=== PATIENT | male | born 1945 | race Caucasian/White ===

== ENCOUNTER → 2017-03-08 | Outpatient (CLI) | payer OTHER | LOC: BHFA 14:00 | PROVIDERS: ATTEND Internal Medicine | DX: I25.10 Atherosclerotic heart disease of native coronary artery without angina pectoris (principal) ==

== ENCOUNTER → 2017-03-09 | Outpatient (CLI) | payer OTHER | LOC: BHFA 13:00 | PROVIDERS: ATTEND Internal Medicine Cardiovascular Disease | DX: I25.10 Atherosclerotic heart disease of native coronary artery without angina pectoris (principal) | CPT/HCPCS: 78452; 93017; A9500; J2785 ==

== ENCOUNTER 2017-08-26 22:24 | Inpatient (IN) | payer OTHER ==
[2017-08-26] MEDS ORDERED: ASPIRIN 81 MG CHEWABLE TAB PO ONE (22:33)
[2017-08-26] MEDS ORDERED: NS 500 ML IV ONE (22:33)
--- NOTE | 2017-08-26 22:33 | EDPHY ---
H & P Stated Complaint: L sided arm pain took nitro HPI/ROS: HPI CHIEF COMPLAINT: Left arm pain, chest pain HISTORY OF PRESENT ILLNESS: Patient very pleasant 71-year-old male, history of hypertension hyperlipidemia coronary artery disease with 2 stents, he presents emergency room with a discomfort in his left arm that then went into his left chest. He denies any shortness of breath with this. Denies radiation of pain. Does not go to his back or his abdomen her neck. He took a nitroglycerin which did improve his discomfort. Current pain 09/22. Patient states this pain started at rest was sitting and watching TV. 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 Past Surgical History: Cardiac catheterization Social History: Smokes tobacco daily. Denies illicit drugs or alcohol. Family History: Noncontributory ROS REVIEW OF SYSTEMS: A comprehensive 10 point review of systems is otherwise negative aside from elements mentioned in the history of present illness. Exam Constitutional appears well nontoxic triage nursing summary reviewed, vital signs reviewed, awake/alert. Eyes normal conjunctivae and sclera, EOMI, PERRLA. HENT normal inspection, atraumatic, moist mucus membranes, no epistaxis, neck supple/ no meningismus, no raccoon eyes. Respiratory clear to auscultation bilaterally, normal breath sounds, no respiratory distress, no wheezing. Cardiovascular rate normal, regular rhythm, no murmur, no edema, distal pulses normal. Gastrointestinal soft, non-tender, no rebound, no guarding, normal bowel sounds, no distension, no pulsatile mass. Genitourinary no CVA tenderness. Musculoskeletal no midline vertebral tenderness, full range of motion, no calf swelling, no tenderness of extremities, no meningismus, good pulses, neurovascularly intact. Skin pink, warm, & dry, no rash, skin atraumatic. Neurologic awake, alert and oriented x 3, AAOx3, moves all 4 extremities equally, motor intact, sensory intact, CN II-XII intact, normal cerebellar, normal vision, normal speech. Psychiatric normal mood/affect. Heme/Lymph/Immune no lymphadenopathy. Differential diagnosis includes but is not limited to: ACS, atypical chest pain , pneumothorax, pneumonia, pulmonary embolism, aortic dissection, congestive heart failure, tumor, musculoskeletal pain, esophageal pain, GERD, peptic ulcer disease, pancreatitis Medical Decision Making: Plan for this patient IV establishment full engine monitor obtain EKG to rule out acute coronary syndrome, check cardiac markers troponin, check blood work, chest x-ray and re-evaluate. Re-evaluation: EKG interpretation by me on record in [employer] system. Impression time of EKG 2234, this is sinus rhythm rate of 84 left anterior fascicular block present. Poor R-wave progression. No ST elevation. No significant ST depression. No significant T-wave abnormalities. 0: Patient is now chest pain-free after 2nd dose of nitroglycerin. Patient additionally received full-dose aspirin.. EKG is been reviewed and is similar to previous EKGs. I do not appreciate new acute ischemia today. Troponin is noted to be negative. D-dimer negative. Chest x-ray is unremarkable. Patient is the following cardiovascular risk factors which includes cardiac disease with underlying stents, age, hypertension, hyperlipidemia I do recommend to the patient and his at bedside that they stay overnight in the hospital for cardiac evaluation. Given his risk factors. I think it is appropriate to do multiple serial enzymes and possibly a stress test. Patient updated. They are okay with being admitted. Source: Patient - Personal History Current Tetanus/Diphtheria Vaccine: Unsure Current Tetanus Diphtheria and Acellular Pertussis (TDAP): Unsure Tetanus Vaccine Date: <10yrs - Medical/Surgical History Hx Asthma: No Hx Chronic Respiratory Disease: No Hx Diabetes: No Hx Cardiac Disease: Yes Hx Renal Disease: No Hx Cirrhosis: No Hx Alcoholism: No Hx HIV/AIDS: No Hx Splenectomy or Spleen Trauma: No Other PMH: [id number], cardiac stents/lead poisioning, soboxon pt. - Social History Smoking Status: Heavy smoker Constitutional: Initial Vital Signs Temperature (C) 36.8 C 08/26/17 22:25 Heart Rate 88 08/26/17 22:25 Respiratory Rate 18 08/26/17 22:25 Blood Pressure 120/75 08/26/17 22:25 O2 Sat (%) 97 08/26/17 22:25 O2 Delivery Mode Room Air Allergies/Adverse Reactions: midazolam HCl [From Versed] Allergy (Unknown, Verified 04/16/14 08:53) fentanyl Allergy (Verified 08/26/17 23:32) HAYFEVER Allergy (Intermediate, Uncoded 04/16/14 08:53) SINUSITIS MITES Allergy (Intermediate, Uncoded 04/16/14 08:53) SINUSITIS OPIATES Allergy (Unknown, Uncoded 08/27/17 13:53) Other-Enter Comments morphine Allergy (Uncoded 08/27/17 16:18) Home Medications: Medication Instructions Recorded Clopidogrel Bisulfate [Plavix (RX)] 75 mg PO DAILY 02/19/12 Aspirin [Aspirin 81mg (*)] 81 mg PO DAILY 04/07/14 Buprenorphine HCl/Naloxone HCl 2.67 mg SL TID 08/27/17 [Suboxone 8 mg-2 mg Sl Film] Diazepam [Valium 10 MG (*)] 10 mg PO HS PRN 08/27/17 Herbals/Supplements -Info Only 1 ea PO DAILY 08/27/17 Naproxen Sodium [Naprelan] 500 mg PO TID PRN 08/27/17 Nature-Throid 195mg 1 each PO DAILY 08/27/17 Silodosin [Rapaflo] 8 mg PO DAILY 08/27/17 Medical Decision Making - Data Points Laboratory Results: Laboratory Results 08/26/17 22:35 08/26/17 22:35 Medications Given: Aspirin Buffered (Aspirin Ec) 325 mg PO ONCALL ONE Stop: 08/28/17 06:01 Last Admin: 08/27/17 11:21 Dose: 325 mg Diphenhydramine HCl (Benadryl) 25 mg PO ONCALL ONE Stop: 08/28/17 06:01 Last Admin: 08/27/17 11:25 Dose: 25 mg Enoxaparin Sodium (Lovenox) 40 mg SC DAILY [facility] Stop: 02/23/18 08:59 Last Admin: 08/27/17 10:00 Dose: 40 mg Famotidine (Pepcid) 20 mg PO ONCALL ONE Stop: 08/28/17 06:01 Last Admin: 08/27/17 11:23 Dose: 20 mg Miscellaneous Medication (Buprenorphine Hcl/Naloxone Hcl [Suboxone 8 Mg-2 Mg Sl Film]) 2.67 mg SL TID [facility] Stop: 02/23/18 21:59 Last Admin: 08/27/17 22:04 Dose: 2.67 mg Discontinued Medications Aspirin (Aspirin) 324 mg PO EDNOW ONE Stop: 08/26/17 22:34 Last Admin: 08/26/17 22:44 Dose: 324 mg Buprenorphine HCl (Suboxone 8mg/2mg) 1.5 tab SL ONCE ONE Stop: 08/27/17 16:50 Last Admin: 08/27/17 17:20 Dose: 0.5 tab Clopidogrel Bisulfate (Plavix) 600 mg PO ONCE ONE Stop: 08/27/17 13:26 Last Admin: 08/27/17 16:16 Dose: Not Given Sodium Chloride (Ns) 500 mls @ 1,000 mls/hr IV EDNOW ONE PRN Reason: Protocol Stop: 08/26/17 23:02 Last Admin: 08/26/17 22:43 Dose: 500 mls Sodium Chloride (Ns) 1,000 mls @ 200 mls/hr IV ONCALL ONE Stop: 08/27/17 10:59 Last Admin: 08/27/17 11:24 Dose: 1,000 mls Nitroglycerin (Nitrostat) 0.4 mg SL EDNOW ONE Stop: 08/26/17 22:39 Last Admin: 08/26/17 22:44 Dose: 0.4 mg Departure - Departure Disposition: [facility] Acute Clinical Impression: Chest pain Condition: Fair
[2017-08-26] MEDS ORDERED: NITROGLYCERIN 0.4 MG BTL SL ONE (22:38)
--- NOTE | 2017-08-26 22:42 | CPEKG ---
Heart Rate: 84 RR Interval: 714 P-R Interval: 156 QRSD Interval: 82 QT Interval: 352 QTC Interval: 417 P [place]: 86 QRS [place]: -46 T Wave [place]: 74 EKG Severity - ABNORMAL ECG - EKG Impression: SINUS RHYTHM EKG Impression: LAD, CONSIDER LEFT ANTERIOR FASCICULAR BLOCK EKG Impression: BORDERLINE R WAVE PROGRESSION, ANTERIOR LEADS Electronically Signed By: Renato Rosas 27-Aug-2017 07:30:00
[2017-08-26 22:53] LABS: INR 0.9 (0.83-1.16); PROTIME(PATIENT) 12.4 SEC (12.0-15.0)
[2017-08-26 22:58] LABS: PLATELET COUNT 172 10^3/uL (150-400)
[2017-08-26 23:06] LABS: CREATINE KINASE 45 IU/L (0-224)
[2017-08-26] MEDS ORDERED: ACETAMINOPHEN 325 MG TAB PO PRN (23:29)
[2017-08-26] MEDS ORDERED: ONDANSETRON 4 MG/2 ML VIAL IVP PRN (23:29)
[2017-08-26] MEDS ORDERED: NITROGLYCERIN 0.4 MG BTL SL PRN (23:33)
--- NOTE | 2017-08-27 04:40 | GHP ---
[f rep st] HISTORY AND PHYSICAL DATE OF ADMISSION: 08/27/2017 PRIMARY ENTERTAINMENT DIRECTOR: Dr. Meade. SOURCE: Patient is overall a fair to poor historian, initially did minimize any medical issues, but falls asleep during the interview. His electronic medical record was reviewed. Case discussed with ED provider. CHIEF COMPLAINT: Chest pain. HISTORY OF PRESENT ILLNESS: Very pleasant, 71-year-old gentleman with past medical history significa nt for coronary artery disease with history of stent placement in the LAD and multi-vessel coronary d isease, nonocclusive disease, who presents to the emergency department today with complaints of new o nset of left arm pain with radiation to his left chest. Patient reports that he was sitting, watchin g a movie on TV approximately 9 p.m., when he had onset of his chest pain. Patient reports that he h ad associated headache. No nausea, vomiting, diaphoresis, or shortness of breath. Patient did feel some heaviness in his chest. He took a dose of nitroglycerin which he had at home, but he was not alva re if this was . His chest pain did subside, but returned approximately 40 minutes later. Abdiel joya did take a 2nd dose of nitroglycerin with resolution of his pain. [facility] to [facility], patient anticipated going to the emergency department for further evaluation, and e n route reports that he took additional 2 doses with resolution of his chest pain upon arrival to the ER. Patient denies any PND, orthopnea, and some mild lower extremity edema in his feet and ankles. REVIEW OF SYSTEMS: GENERAL: Patient denies any acute weight loss. He reports a history of being qu ite thin, but stable in weight, currently at 56 kg, and he reports no acute changes in weight for the last 5 years. The patient reported some occasional sweats, but no fevers or chills. SKIN: No rash es or sores. ENT: Patient without any complaints of nasal congestion, sore throat. EYES: Patient denies any acute changes in vision or ocular pain. Does were glasses. CV: See HPI. RESPIRATORY: No cough or shortness of breath. GI: No nausea, vomiting, abdominal pain, diarrhea. : No dysuri a or hematuria. MUSCULOSKELETAL: Patient denies any joint pain or muscle weakness. NEURO: Headach e initially with onset of chest pain, now resolved. Patient denies any numbness or tingling. PSYCHI ATRIC: Patient denies any anxiety, depression. Remainder of review of systems negative, except as n oted above. ALLERGIES: Versed, fentanyl, opiates, and patient reports history of hay fever. HOME MEDICATIONS: Including Plavix, aspirin, Suboxone, and Rapaflo. PAST MEDICAL HISTORY: Significant for coronary artery disease with history of stent placement in the LAD, multivessel disease without restenosis, benign essential hypertension, hyperlipidemia, BPH, ANGIE for which patient reports he underwent sleep study, but declines to use CPAP or oxygen. PAST SURGICAL HISTORY: Significant for cardiac cath with stent placement in 2011 and repeat cardiac cath in the last several years, per the patient, that did not require intervention, wisdom tooth extr action. FAMILY HISTORY: Patient reports history of CAD in father, mother with diabetes type 2, maternal gran dmother with diabetes type 2 and history of CVA, a brother and sister with history of drug a nd alcohol dependence. He has 2 adult children who are healthy. SOCIAL HISTORY: Patient is retired. He does continue to smoke 2-3 cigarettes per day for the past 6 0 years without intention of cessation. He does not drink any alcohol or utilize any illicit drugs. He has a previous history of drug and possibly alcohol abuse, but patient declined to further elucid ate. CODE STATUS: Full, but patient does not want prolonged life support. PHYSICAL EXAMINATION: VITAL SIGNS: Blood pressure upon arrival to the emergency department is 120/7 5, heart rate 88, respiratory rate 18, O2 sat is 97% on room air with a temperature of 36.8. Repeat vital signs: Blood pressure 108/64, heart rate 60, respiratory rate 13, O2 sat 96% on room air. GEN ERAL: No acute distress. Elderly, frail, cachectic-appearing gentleman is asleep in bed. When I wa lk up to bedside, patient is snoring with apneic events, but he does not arouse from sleep, until his name is called. HEAD: Normocephalic, atraumatic. EYES: Extraocular muscles are grossly intact. Pupils are equal, round, and symmetric. No scleral icterus or conjunctival injection. ENT: Mucous membranes appear moist. Patient with dentures in place. No oropharyngeal erythema or exudates. NEC K: Supple. Trachea midline. CV: Bradycardic with regular rhythm. No murmurs, rubs, or gallops ap preciated. RESPIRATORY: Lungs are clear to auscultation bilaterally. No wheezes, rales, or rhonchi . Unlabored breathing. ABDOMEN: Positive bowel sounds. Soft, nontender to palpation. No rebound, guarding, or masses appreciated. : No Gates in place. No suprapubic tenderness to palpation. E XTREMITIES: Patient is able to move extremities while lying in bed. Strength testing deferred danya pedraza to patient's complaint of feeling tired. NEURO: Grossly nonfocal. No facial drooping. Patien t is awake, alert, and oriented x3. Detailed exam is limited secondary to patient's desire to go to sleep. PSYCHIATRIC: Affect is quite flat. Patient does fall asleep intermittently and does not danial ear quite interested in conversing, but does cooperate as much as possible. LABORATORY FINDINGS: WBC 5.43, H and H 15.5 and 46.2, MCV of 94.7, platelet count is 172, no bands, eosinophil percent is 9.8. PT is 12.4, INR 0.9, PTT is 28.4. Sodium is 143, potassium is 4.7, chloride is 108, CO2 is 24, anion gap is 11, BUN 18, creatinine 0.8, GFR of greater than 60, glucose 91, calcium is 9.5, magnesium 1.7, total bili 0.2, ALT is 24, AST is 20, alk phos is 89. CK is 45, CK-MB is 1.38. Troponin is negative at 0.019. BTNP is 67. Total pr otein 6.3, albumin is 3.9. Lipase is 35. Chest x-ray: Image report reviewed myself showing a calcified granuloma in left lower lung and left hilum that is unchanged, otherwise negative. EKG, reviewed myself, showed normal sinus rhythm without any acute ST elevations. QTc is 417. ASSESSMENT AND PLAN: This is a 71-year-old gentleman with a history of coronary artery disease, stat us post stent placement in left anterior descending artery 9 years ago, who presents with complaints of chest pain and left arm pain. 1. Chest pain. Differential diagnosis including angina, less likely acute coronary syndrome versus less likely pulmonary embolism or musculoskeletal. Patient reports a recent evaluation with Dr. Matt lizarraga on outpatient basis, and completed stress testing 2 months ago which he reports was normal. Donato lagos's chest pain is currently resolved. He did receive 4 doses prior to arrival in the emergency depa rtment of nitroglycerin. We will leave this p.r.n. We will trend serial enzymes, repeat EKG in the morning, and further discussion with cardiology service for further recommendations, given patient's significant coronary disease. 2. Hyperlipidemia. Patient reports he is no longer on statin therapy, and is diet controlled. 3. Coronary artery disease. Continue aspirin, Plavix. Patient is not on statin, angiotensin-conver ting enzyme inhibitors, angiotensin receptor frankie, or beta frankie. 4. Obstructive sleep apnea with noncompliance. Patient declines any supplemental oxygen overnight. He has witnessed apneic events, and encourage patient to reconsider therapeutic options and to follo w up with his primary care physician. 5. Underweight with a BMI of 17.4. Patient reports his weight has actually stabilized for the last several years. He denies any acute weight changes. Patient should follow up with primary care physi david. 6. Benign prostatic hypertrophy. Resume Rapaflo. 7. Tobacco abuse. Cessation encouraged. Holding off on nicotine supplementation, pending further c ardiac evaluation. 8. History of drug abuse and chronically on Suboxone therapy. Patient to resume at discharge. 9. Fluid, electrolyte, nutrition. Patient will be made n.p.o. after midnight. Electrolytes will be monitored and replaced if needed. 10. Prophylaxis: Sequential compression devices and Lovenox. 11. Code status is full. Patient does not want any prolonged life support. DISPOSITION: Patient will be admitted to observation on PCU floor. Currently, held in ov erflow and PCU status. Pending further cardiac evaluation and serial enzyme trends. /[id number]/MODL
[2017-08-27] MEDS ORDERED: NS 1,000 ML IV ONE (06:00)
--- NOTE | 2017-08-27 08:52 | CPEKG ---
Heart Rate: 49 RR Interval: 1224 P-R Interval: 140 QRSD Interval: 86 QT Interval: 408 QTC Interval: 369 P [place]: 50 QRS [place]: -52 T Wave [place]: 73 EKG Severity - ABNORMAL ECG - EKG Impression: SINUS BRADYCARDIA EKG Impression: LAD, CONSIDER LEFT ANTERIOR FASCICULAR BLOCK EKG Impression: LOW VOLTAGE THROUGHOUT Electronically Signed By: Rodolfo Fu 29-Aug-2017 09:18:21
[2017-08-27] MEDS: ENOXAPARIN 40 MG/0.4 ML SYR SC SCH (10:00)
[2017-08-27] MEDS ORDERED: NITROGLYCERIN 0.4 MG BTL SL PRN (10:22)
[2017-08-27] MEDS ORDERED: TEMAZEPAM 15 MG CAP PO PRN (10:22)
[2017-08-27] MEDS ORDERED: ACETAMINOPHEN 325 MG TAB PO PRN (10:22)
[2017-08-27] MEDS ORDERED: diphenhydrAMINE 25 MG CAP PO ONE (11:04)
[2017-08-27] MEDS ORDERED: ASPIRIN EC 325 MG TAB PO ONE (11:05)
[2017-08-27] MEDS ORDERED: FAMOTIDINE 20 MG TAB ONE (11:05)
--- NOTE | 2017-08-27 11:11 | GCON ---
[f rep st] CONSULTATION CHIEF COMPLAINT: Chest pain. HISTORY OF PRESENT ILLNESS: Jaciel Sarah is a gentleman who has known coronary artery disease. Las t night he was at home and he developed some anterior chest discomfort. He felt tight, felt like his heart issues and he also had some pain a little bit in his left arm. It came and went. He, at 9 o' clock, took a nitroglycerin and it helped. At 10:30 he had more problems with chest pain. He came i nto the hospital. He had been noticing fatigue on Sunday and Sunday, and he is concerned about his heart. He has a long history of smoking. He is not smoking at this time. He does not have nausea, vomiting , diarrhea, fever, chills, cough. No pleuritic chest pain. No hot, swollen joints. No peripheral e patricia. No trauma to the head, neck, or chest. He has been working 6-7 days a week as he always does. He is able to keep up his work and not have problems with that. He has been taking his medications at home. He has no history of rheumatic disease, claudication or cerebrovascular disease. He has k nown coronary artery disease. He has a family history of premature coronary disease. SOCIAL HISTORY: History of smoking. He has had a history of issues with drugs. PAST MEDICAL HISTORY: History of dyslipidemia, history of known myocardial infarctions. He is a smo ker. He does not have diabetes. Cardiac history is repeated in-stent in the assessment and plan. REVIEW OF SYSTEMS: 10-point review of systems negative, except as noted above. MEDICATIONS: At home: Naprelan, herbal medicines, Valium, Rapaflo, Plavix, aspirin, and Suboxone. ALLERGIES: Are Versed, fentanyl, hay fever, opiates. FAMILY HISTORY: He has multiple people in the family who had early coronary artery disease. PHYSICAL EXAMINATION: VITAL SIGNS: Blood pressure is 119/60, respiratory rate is 12. HEENT: Pupil s equal and reactive. NECK: Supple. CARDIOVASCULAR: S1, S2. Soft systolic murmur left sternal roque rder. No diastolic murmur. No S3 or S4. No rubs. PULMONARY: Rhonchi. No rales, wheezing or dull ness. He has stigmata of COPD with increased AP diameter and prolonged expiration. ABDOMEN: Soft, nontender, without masses. CVA: No tenderness. EXTREMITIES: No edema, inflammation or ulceration. NEUROLOGIC: Cranial nerves 2-12 grossly normal. Motor and sensory intact. IMAGING: His EKG shows no acute changes. He has left axis deviation and low voltage. Chest x-ray s hows findings consistent with COPD and a calcified granuloma in the left lower lung. Hyperinflation. He had an echocardiographic study done several months ago in the office, which showed inferior hypo kinesis and an ejection fraction 45% to 50%. He came in with an acute myocardial infarction with 100 % mid LAD stenosis in 2009. He had a repeat catheterization later that showed his stents were patent during that same hospitalization. He had further discomfort, and on 02/21 he had another ju ogram which showed 20% stenosis prior to the proximal stent in the LAD, 20% in-stent restenoses in th e mid LAD stent, 20% circumflex disease. The right coronary artery is 70% and nondominant. The LAD gives off a right atrial branch. LABORATORY DATA: Troponins have been negative. White count 5.3, hematocrit 46.2, platelets 172. ASSESSMENT: 1. Coronary artery disease. 2. Ischemic cardiomyopathy. 3. Smoking. 4. Dyslipidemia. 5. Chest pain. PLAN: At this point in time. His pulses are full and equal. There is nothing to suggest aortic dis ease right now. His EKG shows low voltage and that may be due to his pulmonary disease, but will als o do an echocardiographic study and make sure there is nothing going on in terms of pericardial effus ion. This pain that he had yesterday sounds more like ischemic pain. It was improved with nitroglyc kaylynn, and it feels like his ischemic pain in the past. He wants to undergo an angiogram. He knows t he risks and the options, so we will proceed with coronary angiography. He is a major problem, he co ntinues to smoke, but it is very difficult for him to get off of that. He has had problems with drug s in the past and he is on Suboxone. We will figure out what drugs we can use to sedate him during t he angiogram, and I will be in touch with Anesthesia for that information. Otherwise, all his questions have been answered. We will be watching very carefully for his lipids o peter time. Now that he is in the hospital, he may be willing to undergo some further medications. We can get him on Coreg and MICHAEL inhibitor for his ischemic cardiomyopathy. I have talked to his and him at length. We will follow very closely. I texted the hospitalist who asked for this consultation about our plans. /[id number]/MODL
[2017-08-27] MEDS ORDERED: LIDOCAINE 1% 300 MG/30 ML SDV ONE (11:25)
[2017-08-27] MEDS ORDERED: MIDAZOLAM 2 MG/2 ML VIAL ONE (11:26)
[2017-08-27] MEDS ORDERED: fentaNYL 100 MCG/2 ML INJ ONE (11:26)
[2017-08-27] MEDS ORDERED: IOPAMIDOL (ISOVUE-370) 150 ML BTL IV ONE ×2 (11:26→12:47)
[2017-08-27] MEDS ORDERED: DIAZEPAM 10 MG TAB PO PRN (12:28)
[2017-08-27] MEDS ORDERED: BIVALIRUDIN 250 MG/5 ML VIAL IV ONE (12:40)
[2017-08-27] MEDS ORDERED: NITROGLYCERIN 1,500 MCG/15 ML VIAL MISC ONE (12:40)
[2017-08-27] MEDS ORDERED: CLOPIDOGREL BISULFATE 75 MG TAB ONE (13:17)
[2017-08-27] MEDS ORDERED: ATROPINE SULFATE 1 MG/10 ML SYR IVP PRN (13:25)
[2017-08-27] MEDS ORDERED: CLOPIDOGREL BISULFATE 75 MG TAB PO ONE (13:25)
--- NOTE | 2017-08-27 13:34 | POSTANESTH ---
Post Anesthetic Evaluation Cardiovascular Status: Normal, Stable Respiratory Status: Normal, Stable Level of Consciousness/Mental Status: Mildly Sleepy, Arousable Pain Control: Adequate, Prn Tx Ordered Nausea/Vomiting Control: Adequate, Prn Tx Ordered Complications Possibly Related to Anesthesia: None Noted
--- NOTE | 2017-08-27 13:34 | PDANEPAE ---
ANE History of Present Illness 71 year old with chest pain ANE Past Medical History - Cardiovascular History Hx Chest Pain: Yes - Pulmonary History Hx Oxygen in Use at Home: No - Endocrine History Hx Diabetes: No ANE Review of Systems Review of systems is: negative Review of Systems: ANE Patient History - Allergies Allergies/Adverse Reactions: midazolam HCl [From Versed] Allergy (Unknown, Verified 04/16/14 08:53) fentanyl Allergy (Verified 08/26/17 23:32) HAYFEVER Allergy (Intermediate, Uncoded 04/16/14 08:53) SINUSITIS MITES Allergy (Intermediate, Uncoded 04/16/14 08:53) SINUSITIS OPIATES Allergy (Unknown, Uncoded 04/16/14 08:53) - Home Medications Home medications: home medication list seen and reviewed (Pt has a history of narcotic abuse and is on sulbaxone) Home Medications: BUPRENORPHINE/NALOXONE 8mg/2mg [Suboxone] 1.5 tab SL DAILY 02/19/12 [Last Taken Unknown] Clopidogrel Bisulfate [Plavix (RX)] 75 mg PO DAILY 02/19/12 [Last Taken Unknown] Aspirin [Aspirin 81mg (*)] 81 mg PO DAILY 04/07/14 [Last Taken Unknown] Diazepam [Valium 10 MG (*)] 10 mg PO HS PRN 08/27/17 [Last Taken Unknown] Herbals/Supplements -Info Only 1 ea PO DAILY 08/27/17 [Last Taken Unknown] Naproxen Sodium [Naprelan] 500 mg PO TID PRN 08/27/17 [Last Taken Unknown] Nature-Throid 195mg 1 each PO DAILY 08/27/17 [Last Taken Unknown] Silodosin [Rapaflo] 8 mg PO DAILY 08/27/17 [Last Taken Unknown] - Smoking Hx Smoking Status: Heavy smoker ANE Labs/Vital Signs - Labs Result Diagrams: 08/26/17 22:35 08/26/17 22:35 - Vital Signs Blood Pressure: 119/61 Heart Rate: 58 Respiratory Rate: 13 O2 Sat (%): 94 Height: 180.34 cm Weight: 56.79 kg ANE Physical Exam - Airway Mallampati Score: Class 1 Mouth exam: dentures - Pulmonary Pulmonary: no respiratory distress - Cardiovascular Cardiovascular: regular rate and rhythym - ASA Status ASA Status: III ANE Anesthesia Plan Anesthesia Plan: MAC
--- NOTE | 2017-08-27 13:44 | CPEKG ---
Heart Rate: 61 RR Interval: 984 P-R Interval: 124 QRSD Interval: 86 QT Interval: 416 QTC Interval: 419 P [place]: 75 QRS [place]: -56 T Wave [place]: 70 EKG Severity - ABNORMAL ECG - EKG Impression: SINUS RHYTHM EKG Impression: LEFT ANTERIOR FASCICULAR BLOCK EKG Impression: LOW VOLTAGE THROUGHOUT Electronically Signed By: Rodolfo Fu 29-Aug-2017 09:17:06
--- NOTE | 2017-08-27 13:50 | ECHO ---
[email or web address] [address] Main: [phone] Fax: Transthoracic Echocardiogram Name: NONA COKER MR#: [id number] Study Date: 08/27/2017 Study Time: 11:47 AM Date of : 1945 Age: 71 year(s) Height: 180.3 cm (71 in.) Weight: 56.7 kg (125 lb.) BSA: 1.73 m2 Gender: Male Examination: Echo Indication: COPD, Shortness of breath, CP, Pre Cath Image Quality: Contrast: Requested by: Jean Meade BP: 115 mmHg/67 mmHg Heart Rate: Rhythm: Normal sinus rhythm Indication: COPD, Shortness of breath, CP, Pre Cath Procedure Staff Directional Bore Operator: Chad Knowles Physician: Requesting Provider: Measurements: Chambers Valvular Assessment AV/MV Valvular Assessment TV/PV Normal Normal Normal Name Value Range Name Value Range Name Value Range Ao Giuliana (MM): 3.3 cm (2.2 cm-3.7 AV Vmax: 1.02 m/s (1 m/s-1.7 TR Vmax: 2.66 mm/s ( - ) cm) m/s) TR PGmax: 28 mmHg ( - ) IVSd (2D): 0.7 cm (0.6 cm-1.1 AV maxP mmHg ( - ) syst. PAP: 33 mmHg ( - ) cm) LVOT Vmax: 0.46 m/s (0.7 m/s-1.1 PV Vmax: 0.69 m/s (0.6 m/s-0.9 LVDd (2D): 4.6 cm (4.2 cm-5.9 m/s) m/s) cm) MV E Vmax: 0.46 m/s ( - ) PV PGmax: 2 mmHg ( - ) LVDs (2D): 3.5 cm (2.1 cm-4 MV A Vmax: 0.53 m/s ( - ) cm) MV E/A: 0.87 ( - ) LVPWd (2D): 1.0 cm (0.6 cm-1 cm) LVEF (MM): 48 (>=55 %) Visual EF: 50 % Continued Measurements: Chambers Valvular Assessment TV/PV Name Value Name Value LADs Lon.6 cm CVP (est.): 5 mmHg LA Area: 18.1 cm2 Findings: Left Ventricle: Normal size left ventricle. Low normal left ventricular systolic function. The ejection fraction is visually estimated to be 50 %. Diastolic dysfunction is present. . There is subtle mid to distal anteroseptal hypokinesis.. Patient: NONA COKER Study Date: 08/27/2017 Page 1 of 2 11:47 AM Right Ventricle: Normal size right ventricle. Left Atrium: The left atrium is normal in size. Right Atrium: The right atrium is normal in size. Mitral Valve: The mitral valve is normal in appearance. Aortic Valve: The aortic valve is tri-leaflet and functions normally. Tricuspid Valve: The tricuspid valve is normal in appearance and function. Aorta: The aorta is normal. Pericardium: No pericardial effusion. (No Signature Object) Patient: NONA COKER Study Date: 08/27/2017 Page 2 of 2 11:47 AM [id number]
--- NOTE | 2017-08-27 16:35 | ASMTCMCOM ---
CM Note CM Note Notes: 71 year old male admitted for CP. He has a hx of CAD with a stent to LAD, multivessel dis, HTN, HLD, BPH, ANGIE-no c-pap. He also has a hx of drug use and continues to smoke. Patient to go to the woven label designer today. Not anticipating discharge needs at this time. Date Signed: 08/27/2017 04:34 PM Electronically Signed By:Key Cruz LCSW
--- NOTE | 2017-08-27 18:40 | HOSPPROG ---
Hospitalist Progress Note Assessment/Plan: Assessment: 71-year-old presents with unstable angina in the setting of known coronary artery disease Plan: 1. Unstable angina. Evidenced by anginal chest pain at rest, secondary to a 99 % lesion in the LAD on cardiac catheterization, amenable to PCI with stent placement this afternoon -patient will be maintained on aspirin and Plavix -LDL 129, goal 70, counseled the patient and his that attempting to utilize a different statin then his previous intolerant one may be of benefit, will need to check with Dr. Meade which statin the patient has taken in the past -patient's heart rate and blood pressure currently precludes use of beta-frankie -given high risk lesion, monitor for arrhythmias additional 24 hr on telemetry -counseled the patient and his regarding the use of sublingual nitroglycerin in future if he experiences any recurrent chest pain, they live far from medical care so this will be important 2. Chronic systolic congestive heart failure and ischemic cardiomyopathy. Ejection fraction 50% on echocardiogram, currently no evidence of acute exacerbation, patient will need to monitor his volume status 3. Chronic pain with continuous opiate dependency. Patient is very specific about his dosing of Suboxone, will attempt to accommodate Diet. Regular Prophylaxis. High risk patient, Lovenox 40 Code. Full Disposition. Anticipated discharge uncertain, anticipated length stay is greater than 48 hr warranting inpatient admission status reasonable medical necessity including acute unstable angina requiring PCI, high risk lesion requiring ongoing telemetry monitoring. Upgraded to inpatient admission status now. Prolonged service, in addition to the time originally spent on history and physical by Dr. Zavala, direct patient care, at bedside with patient and , from 4:25 p.m. until 5:00 p.m. (35 minutes), addressing issues outlined above. Subjective: Patient denies any chest pain, he would like his Suboxone Objective: Vital Signs Temp Pulse Resp BP Pulse Ox 36.8 C 56 L 12 106/68 95 08/27/17 17:08 08/27/17 18:12 08/27/17 18:12 08/27/17 18:12 08/27/17 18:12 Laboratory Results 08/27/17 02:55 08/26/17 08/27/17 08/28/17 05:59 05:59 05:59 Intake Total 525 100 Output Total 900 400 Balance -375 -300 PT 12.4 SEC (12.0-15.0) 08/26/17 22:35 INR 0.90 (0.83-1.16) 08/26/17 22:35 - Physical Exam Constitutional: no apparent distress, appears nourished, not in pain Cardiovascular: regular rate and rhythym, no murmur, rub, or gallop, No edema Respiratory: no respiratory distress, no rales or rhonchi, clear to auscultation Gastrointestinal: normoactive bowel sounds, soft, non-tender abdomen, no palpable masses Skin: other (No erythema, no induration, no ecchymoses, no hematoma or tenderness at the cath site) Psychiatric: flat affect, other (Somnolent) ICD10 Worksheet Patient Problems: Problems Problem Status Onset Chest pain Acute
--- NOTE | 2017-08-27 19:33 | CPIP ---
[f rep st] INVASIVE CARDIAC PROCEDURE DATE OF PROCEDURE: 08/27/2017 INDICATIONS FOR PROCEDURE: Chest pain. PROCEDURES: 1. Nonselective right groin sheathogram. 2. Left ventriculogram. 3. Right coronary artery angiography. 4. Left coronary artery angiography with percutaneous coronary intervention of proximal left anterio r descending utilizing Synergy 3.0 x 16 mm drug-eluting stent. HISTORY: Briefly, this is a 71-year-old male with history of coronary artery disease. The patient u nderwent a coronary cardiac catheterization by Dr. Kevin Meade. Please refer to Dr. Meade for full delineation of underlying coronary anatomy. Briefly, the patient was found to have a high-grade pro x LAD stenosis of over 90% just at the level of his previously placed stents. There was some involve ment of the previously placed stents as well. Given these findings, patient consented for PCI. DESCRIPTION OF PROCEDURE: Utilizing the same short 6-Bruneian sheath in the right groin which was veri fied angiographically, a JR4 catheter was advanced to the right coronary artery. Images of the right coronary artery revealed a nondominant right coronary artery with a high-grade 70% stenosis at the p roximal aspect. This catheter was then removed and an EBU 3.5 guide catheter was advanced to the lef t coronary artery. A Choice PT wire was placed down to the mid LAD. Re-demonstration of the high-gr moisés 90% lesion in the proximal LAD was demonstrated. The patient was started on Angiomax bolus and d rip. Utilizing a 3.0 x 12 Compliant balloon, the balloon was placed in the proximal lesion and infla miguelangel to 10 atmospheres. After deflation, angiography showed improved patency of this area with no ab dence of dissection or perforation. We decided proceed with stenting of the vessel with a Synergy 3. 0 x 16 mm drug-eluting stent. This was deployed successfully at 14 atmospheres. After deployment, a ngiography showed excellent patency of the stented area with no evidence of dissection or perforation . There was a mild step-up from the ostial LAD to the stented area but no evidence of any edge disse ction. This was verified in orthogonal views. Wire was removed. The guide catheter was then pulled back. The pigtail catheter was then advanced into the left ventricle, EDP was 15 mmHg. Left ventri culogram obtained in the GODINEZ projection showed EF of 55% with no wall motion abnormalities. There wa s no pull-back gradient between LV and the aorta. The pigtail catheter was then pulled back, and und er digital subtraction imaging, abdominal angiogram was obtained which showed patent distal ascending aorta. There was what appeared to be a 50% right common iliac narrowing followed by an additional a mallory of 60% to 70% narrowing in the right external iliac artery. The right internal iliac artery appe ared to be patent. The left common iliac artery appeared to be patent; however, there was linear are as of possible dissection noted in the left distal common iliac artery. The left internal iliac river ry appeared to be patent. The left external iliac artery appeared to be patent. 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 The pigtail catheter was removed over an 0.035 wire. The rig ht groin was sutured in place. Patient tolerated the procedure well with no complications. IMPRESSION: 1. Successful percutaneous coronary intervention of high-grade proximal left anterior descending wit h Synergy 3.0 x 16 mm drug-eluting stent. 2. Nondominant right coronary artery with significant disease. 3. Normal ejection fraction. 4. Significant aortic iliac peripheral arterial disease. PLAN: The patient will have his sheath discontinued 2 hours after the Angiomax is turned off. We wi ll administer 600 Plavix now. When the patient is more awake, if the patient should to be complainin g of claudication, especially in his right lower extremity, we can certainly plan on proceeding with intervention of his vascular territory in the near future. /[id number]/MODL
[2017-08-28 04:31] LABS: PLATELET COUNT 152 10^3/uL (150-400)
[2017-08-28 04:46] LABS: INR 0.98 (0.83-1.16); PROTIME(PATIENT) 13.2 SEC (12.0-15.0)
[2017-08-28] MEDS ORDERED: ASPIRIN EC 325 MG TAB PO ONE (06:00)
[2017-08-28] MEDS ORDERED: FAMOTIDINE 20 MG TAB PO ONE (06:00)
[2017-08-28] MEDS ORDERED: DIAZEPAM 5 MG TAB PO ONE (06:00)
[2017-08-28] MEDS ORDERED: diphenhydrAMINE 25 MG CAP PO ONE (06:00)
--- NOTE | 2017-08-28 08:56 | CPEKG ---
Heart Rate: 58 RR Interval: 1034 P-R Interval: 164 QRSD Interval: 86 QT Interval: 404 QTC Interval: 397 P [place]: 90 QRS [place]: 63 T Wave [place]: 78 EKG Severity - NORMAL ECG - EKG Impression: SINUS RHYTHM Electronically Signed By: Arcenio Ruiz 02-Sep-2017 10:18:47
[2017-08-28] MEDS ORDERED: Herbals/Supplements -Info Only PO SCH (09:00)
[2017-08-28] MEDS: CLOPIDOGREL BISULFATE 75 MG TAB PO SCH (09:11)
[2017-08-28] MEDS: ENOXAPARIN 40 MG/0.4 ML SYR SC SCH (09:11)
[2017-08-28] MEDS: EZETIMIBE 10 MG TAB PO SCH (10:34)
[2017-08-28] MEDS: ASPIRIN 81 MG CHEWABLE TAB PO SCH (10:34)
--- NOTE | 2017-08-28 11:01 | SOAPPROG ---
[facility] Progress Note Assessment/Plan: Assessment: 1. Coronary artery disease 2. Dyslipidemia 3. Tobacco abuse 4. COPD He is doing well today. He received a stent to his left anterior descending artery yesterday. Tolerated that well with no cx . At we are going to start him on bisoprolol at this point and see if he can tolerate that I am not sure that that will work as he has a low blood pressure and low heart rate so were going to have to see if he can tolerate this at all. I would really like to put him with on vasotec 2.5 mg daily as well but we will not add that today. He is not going to be going to work for 1 week and when he goes back to work in 1 week after discharge he will only work for hours a day for that week. He he is not going to smoke anymore and wants no medical aids to help him stop smoking. We have cover this extensively. For his lipids we will try is him I would try zetia at 10 mg per day and watch how he does with that. He has had multiple statins in the past and always had very bad reactions to those and he does not want to start those at this time. I spent a good deal of time talking to he and his all her questions have been answered. Plan: 08/28/17 10:58 Subjective: He is feeling well. Is a little bit lightheaded He has no nausea vomiting No chest pain or chest tightness No trouble with his right groin. He is not dizzy. He does not like statins and would rather not take a statin at this point time. He has been on Plavix and will continue his Plavix. Will continue his aspirin. Objective: Vital Signs Temp Pulse Resp BP Pulse Ox 36.6 C 66 12 91/53 L 92 08/28/17 07:11 08/28/17 07:11 08/28/17 07:11 08/28/17 07:11 08/28/17 07:11 Laboratory Results 08/28/17 03:44 08/28/17 03:44 08/27/17 08/28/17 08/29/17 05:59 05:59 05:59 Intake Total 525 300 Output Total 900 650 Balance -375 -350 PT 13.2 SEC (12.0-15.0) 08/28/17 03:44 INR 0.98 (0.83-1.16) 08/28/17 03:44 Physical Exam - Physical Exam General Appearance: alert Neck: supple Respiratory: rhonchi, prolonged expiration Cardiac/Chest: systolic murmur, No irregularly irregular Abdomen: normal bowel sounds, non-tender, soft, No organomegaly Skin: warm/dry, No pallor Neuro/Psych: no motor/sensory deficits, alert, normal mood/affect ICD10 Worksheet Patient Problems: Problems Problem Status Onset Chest pain Acute
--- NOTE | 2017-08-28 11:12 | PDMN ---
Medical Necessity Medical necessity: Change to IP, as of 08/27/17, per MD; los >2 mn for ongoing management of acute unstable angina requiring PCI w/stent placement, high risk lesion requiring ongoing telemetry monitoring; hx CHF & ischemic cardiomyopathy ; per progress note & order 08/27/17
--- NOTE | 2017-08-28 11:26 | CPIP ---
[f rep st] INVASIVE CARDIAC PROCEDURE PROCEDURE: Left coronary angiogram. INDICATIONS: The patient has been having rest angina. His troponins are negative. He has been admi tted to the hospital, and he is now getting a coronary angiogram. He has known coronary artery disease with 100% occlusion of his left anterior descending artery in [place] of [place], that was stented with multiple stents. He subsequently had a followup angiogram very louie rtly after the first stents were put in to see if the stents were patent and they were. Then in 2011 , he had a followup angiogram, and he was having more pain and he had 20% to 25% disease with in-sten t restenosis, but nothing high grade that needed to be fixed at that time. Since that time, he has been followed clinically. He has remained on Plavix and aspirin, and he has refused to take statin medications. FINDINGS: LEFT CORONARY ANGIOGRAM: The left main coronary artery is normal. The LAD has 95% in-stent mid restenosis. The distal LAD is excellent. There is intimal disease in the distal vessel. The circumflex coronary artery OM1 has 2 5% proximal stenosis. The circumflex coronary artery is a dominant vessel and there is intimal disea se present. The posterolateral branch comes off the circumflex and has good blood flow with no high- grade obstruction present. The right coronary artery is nondominant and has a 70% proximal to mid section stenosis that is old a nd not changed from 2012 significantly. Left ventriculogram was deferred at this time. CONCLUSION: 1. Significant coronary artery disease involving the left anterior descending artery. 2. The recommendation is for PCI with Dr. Angel. 3. It was a little difficult passing the catheter up into the patient's abdominal aorta, although th ere were no complications from passing it up and we used a Ches[place] J-wire to get to the aorta. [facility] is going to have an abdominal aortogram and iliac study done by Dr. Angel at the end of his in tervention. All questions have been answered. COMPLICATIONS: None. The patient understands and wishes to proceed with intervention. /[id number]/MODL
[2017-08-28] MEDS ORDERED: BISOPROLOL FUMARATE 5 MG TAB PO ONE (14:07)
[2017-08-28] MEDS: ASCORBIC ACID 500 MG TAB PO SCH (15:03)
--- NOTE | 2017-08-28 15:03 | HOSPPROG ---
Hospitalist Progress Note Assessment/Plan: Assessment: 71-year-old presents with unstable angina in the setting of known coronary artery disease Plan: 1. Unstable angina. 99% lesion in the LAD on cardiac catheterization, amenable to PCI with stent placement -patient will be maintained on aspirin and Plavix -LDL 129-155, goal 70, counseled the patient extensively regarding indication for statin, he chooses to use zetia + supplement, although I encouraged him to consider trial of statin w/ outpt CPK surveillance, since his primary concern is rhabdomyolysis -d/w Dr. Meade, he recommends trial of low dose bblocker to reduce risk of subsequent CV morbidity, requires monitored trial as inpt since his ely shoshone HR 50 -60s and sBP 100s, at risk for complication from bblocker -monitor on tele 2. Chronic systolic congestive heart failure and ischemic cardiomyopathy. Ejection fraction 50% on echocardiogram, currently no evidence of acute exacerbation, patient will need to monitor his volume status -adding bblocker 3. Chronic pain with continuous opiate dependency. Appropriate dosing of suboxone 4. BPH. Chronic, uses rapaflo split tid to avoid orthostasis, monitor - check AM orthostatics Diet. Regular Prophylaxis. High risk patient, Lovenox 40 Code. Full Disposition. Anticipated discharge 08/29, pending stability of above. Subjective: patient concerned about myopathy from statins, orthostasis from bblockers Objective: Vital Signs Temp Pulse Resp BP Pulse Ox 36.6 C 92 16 96/53 L 91 L 08/28/17 11:27 08/28/17 11:27 08/28/17 11:27 08/28/17 11:27 08/28/17 11:27 Laboratory Results 08/28/17 03:44 08/28/17 03:44 08/27/17 08/28/17 08/29/17 05:59 05:59 05:59 Intake Total 300 Output Total 250 Balance 50 PT 13.2 SEC (12.0-15.0) 08/28/17 03:44 INR 0.98 (0.83-1.16) 08/28/17 03:44 - Time Spent With Patient Time Spent with Patient: greater than 35 minutes Time Spent with Patient: Greater than 35 minutes spent on this patients care, greater than 50% of time spent counseling, educating, and coordinating care regarding the above mentioned plan. - Pending Discharge Pending Discharge Within 24 Hours: Yes Pending Discharge Date: 08/29/17 Pending Discharge Time: 11:00 - Physical Exam Constitutional: no apparent distress, appears nourished, not in pain Cardiovascular: bradycardia, No systolic murmur, No irregularly irregular Respiratory: no respiratory distress, no rales or rhonchi, clear to auscultation Psychiatric: interacting appropriately, not anxious, not encephalopathic, thought process linear ICD10 Worksheet Patient Problems: Problems Problem Status Onset Chest pain Acute
[2017-08-28 19:38] VITALS: RESP 16
[2017-08-29 04:04] VITALS: O2SAT 91
[2017-08-29 07:38] VITALS: TEMP 97.5
[2017-08-29] MEDS: EZETIMIBE 10 MG TAB PO SCH (08:46)
[2017-08-29] MEDS: CLOPIDOGREL BISULFATE 75 MG TAB PO SCH (08:46)
[2017-08-29] MEDS: ASCORBIC ACID 500 MG TAB PO SCH (08:46)
[2017-08-29] MEDS: ASPIRIN 81 MG CHEWABLE TAB PO SCH (08:46)
[2017-08-29] MEDS: ENOXAPARIN 40 MG/0.4 ML SYR SC SCH (08:46)
[2017-08-29] MEDS ORDERED: THYROID PO SCH ×2 (09:00)
[2017-08-29] MEDS ORDERED: BISOPROLOL FUMARATE 5 MG TAB PO SCH (09:00)
[2017-08-29 09:25] VITALS: BP 93/59; PULSE 60
--- NOTE | 2017-08-29 13:23 | PDDCSUM ---
Discharge Summary Discharge Summary: DISCHARGE SUMMARY FOLLOW-UP ITEMS: Repeat outpatient LDL DATE OF ADMISSION: 08/26/2017 DATE OF DISCHARGE: 08/29/2017 DISCHARGE DIAGNOSES: 1. Acute unstable angina 2. Chronic systolic congestive heart failure and ischemic cardiomyopathy 3. Chronic pain with continuous opiate dependency 4. Chronic BPH CONSULTATIONS: Cardiology PROCEDURES / IMAGING: Cardiac catheterization demonstrating 99% lesion in the LAD, status post PCI with stent placement CHIEF COMPLAINT: Acute chest pain, fatigue, shortness of breath SUBJECTIVE: Patient is feeling well at time of discharge, he did have some lightheadedness upon standing earlier this morning PHYSICAL EXAM ON DISCHARGE: Systolic blood pressure is 80-100, heart rate 60-70, alert awake oriented x3, distant heart sounds, regular rate and rhythm, no murmurs rubs or gallops, symptomatically orthostatic LABS ON DISCHARGE: LDL 155 HOSPITAL COURSE BY PROBLEM: The patient presented with acute unstable angina resulting in fatigue, exertional shortness of breath, chest discomfort, and this was secondary to a 99 % lesion in the LAD, noted on cardiac catheterization, amenable to PCI with stent placement. The patient will be maintained on his dual anti-platelet therapy with aspirin and Plavix, and we spent a considerable amount of time working with the patient regarding cholesterol management counseling, ultimately deciding to utilize Zetia 10 mg in addition to the patient's herbal supplements. The patient will have repeat outpatient lipid panel monitoring through Dr. Meade office. We also attempted to introduce a beta-frankie to reduce his overall risk of cardiovascular morbidity, and the patient did not tolerate low-dose bisoprolol. He did not tolerate from a blood pressure standpoint, becoming significantly orthostatic in the setting of his concomitant use of Rapaflo. Despite splitting up his dosage of Rapaflo and utilizing it in 1/3 doses over the course of the day, the bisoprolol still made him orthostatic and is best this time to not place him at further risk of falls with the beta-frankie. Dr. Meade also counseled the patient regarding smoking cessation, and the patient will follow up with Dr. Meade next week. The patient's ejection fraction is 50% on echocardiogram, and he did not demonstrate any acute exacerbation of his chronic systolic CHF. The patient does have underlying chronic pain with continuous opiate dependency and was continued on his appropriate dosing of Suboxone. DISCHARGE MEDICATIONS: Please see official discharge medication reconciliation sheet in chart , continue home medications with the addition of Zetia 10 mg daily, as needed sublingual nitroglycerin. DISCHARGE INSTRUCTIONS: Please follow up with Dr. Meade within 1 week, please engage in slow transfers on the day of discharge, as the bisoprolol most likely be in your system for an additional 12 hr. TIME SPENT: Greater than 30 minutes were spent on direct patient care, as well as discharge planning and preparation.
--- NOTE | 2017-08-29 15:56 | ASDISCHSUM ---
Discharge Information Plan Status:Home with No Needs Medically Cleared to Leave:08/28/2017 Discharge Date:08/29/2017 11:36 AM CM D/C Disposition: ADT D/C Disposition:Home, Routine, Self-Care Projected Discharge Date:08/29/2017 12:00 AM Transportation at D/C: Discharge Delay Reason: Follow-Up Date:08/29/2017 12:00 AM Discharge Slot: Final Diagnosis:CP Placement Information Patient Contact Information Contact Name:DARLEEN Relationship: Address:[address] Work Phone: [facility] Phone: [facility]/Zip Code:[place] [address] Email: Financial Information Financial Class: Primary Plan Desc:MEDICARE INPATIENT Primary Plan Number:[id number] Secondary Plan Desc: Secondary Plan Number:[id number] Assessment Information [facility] CM Progress Note CM Note CM Note Notes: 71 year old male admitted for CP. He has a hx of CAD with a stent to LAD, multivessel dis, HTN, HLD, BPH, ANGIE-no c-pap. He also has a hx of drug use and continues to smoke. 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 Not anticipating discharge needs at this time. Date Signed: 08/27/2017 04:34 PM Electronically Signed By:Key Cruz LCSW Intervention Information Intervention Type:GRICELDA-Signed Date of Service:08/28/2017 10:12 AM Patient Type:Observation Staff Member:Saloni Mays Hours: Discipline: Severity: Comment:
--- NOTE | 2017-08-29 16:40 | SOAPPROG ---
SOAP Progress Note Assessment/Plan: Assessment: 1. Coronary artery disease 2. Dyslipidemia 3. Tobacco abuse 4. COPD Plan: 08/28/17 10:58 08/29/17 16:41 1 coronary artery disease 2 dyslipidemia 3 tobacco abuse 4 COPD There is no new issues today. We spent half an hour talking about prevention and exercise and not smoking. I talked to he and his in all her questions have been answered. He is not going to take a beta-frankie because of his symptoms and low blood pressure and low heart rate on the beta-frankie. He will not go home on Vasotec. At like to get him on Vasotec bike and he is very wary of having his blood pressure be too low. Is not going to work for 1 week and after that weak he is going to work for over 4 hours a day only. All his questions have been answered and he is ready to go home at this time. Subjective: He has no cough No sputum production He has stop smoking and he does not plan to start again. he has no chest pain He has no shortness of breath He is not having fever chills nausea vomiting he is not short of breath. He has been up and about. Objective: Vital Signs Temp Pulse Resp BP Pulse Ox 36.4 C 60 16 93/59 L 91 L 08/29/17 07:37 08/29/17 09:24 08/29/17 07:37 08/29/17 09:24 08/29/17 07:37 Laboratory Results 08/28/17 03:44 08/28/17 03:44 08/28/17 08/29/17 08/30/17 05:59 05:59 05:59 Intake Total 300 300 Output Total 250 600 Balance 50 -300 PT 13.2 SEC (12.0-15.0) 08/28/17 03:44 INR 0.98 (0.83-1.16) 08/28/17 03:44 Physical Exam - Physical Exam General Appearance: alert, no apparent distress Respiratory: lungs clear, rhonchi, prolonged expiration Cardiac/Chest: edema, systolic murmur Abdomen: non-tender, soft, No organomegaly Skin: warm/dry Neuro/Psych: no motor/sensory deficits, alert ICD10 Worksheet Patient Problems: Problems Problem Status Onset Chest pain Acute
== END 2017-08-29 11:36 | disposition home or self-care (01) | DRG 247 ==
LOC: F2N 08-27 00:30 → OBSVTOIN 08-27 16:50 → F2W 08-28
PROVIDERS: ADMIT Family Medicine; ATTEND Family Medicine
PROC: B2151ZZ Fluoroscopy of Left Heart using Low Osmolar Contrast (ICD-10-PCS; principal; 2017-08-27)
PROC: B2111ZZ Fluoroscopy of Multiple Coronary Arteries using Low Osmolar Contrast (ICD-10-PCS; principal; 2017-08-27)
PROC: 027034Z Dilation of Coronary Artery, One Artery with Drug-eluting Intraluminal Device, Percutaneous Approach (ICD-10-PCS; principal; 2017-08-27)
DX: I25.110 Atherosclerotic heart disease of native coronary artery with unstable angina pectoris (principal); I11.0 Hypertensive heart disease with heart failure; I50.22 Chronic systolic (congestive) heart failure; F11.20 Opioid dependence, uncomplicated; Z68.1 Body mass index [BMI] 19.9 or less, adult; I25.5 Ischemic cardiomyopathy; G89.29 Other chronic pain; N40.0 Benign prostatic hyperplasia without lower urinary tract symptoms; E78.5 Hyperlipidemia, unspecified; G47.33 Obstructive sleep apnea (adult) (pediatric); R63.6 Underweight; Z95.5 Presence of coronary angioplasty implant and graft; Z72.0 Tobacco use; Z91.19 Patient's noncompliance with other medical treatment and regimen
CPT/HCPCS: C1725; C1769; C1874; C1887; C9600; G0378; J0574; J0583; J1644; J1650; J2250; J3010; Q9967

== ENCOUNTER → 2018-07-01 | Outpatient (CLI) | payer OTHER | LOC: BHFA 15:30 | PROVIDERS: ATTEND Internal Medicine Cardiovascular Disease | DX: I73.9 Peripheral vascular disease, unspecified (principal) ==

== ENCOUNTER → 2018-07-10 | Outpatient (CLI) | payer OTHER | LOC: BHFA 13:30 | PROVIDERS: ATTEND Internal Medicine Cardiovascular Disease | DX: R07.9 Chest pain, unspecified (principal) | CPT/HCPCS: 78452; 93017; A9500; J2785 ==

== ENCOUNTER → 2018-07-22 | Outpatient (CLI) | payer OTHER | LOC: BHFA 13:15 | PROVIDERS: ATTEND Internal Medicine | DX: R07.9 Chest pain, unspecified (principal) ==

== ENCOUNTER → 2019-01-28 | Outpatient (CLI) | payer OTHER | LOC: CIMAGING 14:21 ==